=== PATIENT | male | born 1985 | race Caucasian/White ===

== ENCOUNTER 2016-09-21 17:03 | Emergency (ER) | payer OTHER ==
[2016-09-21 17:23] VITALS: TEMP 97.7
[2016-09-21 17:34] VITALS: O2SAT 98
--- NOTE | 2016-09-21 18:02 | ED PDOC ---
Arrival/HPI - General Historian: Patient - General Chief Complaint: Male Genitourinary Time Seen by Provider: 09/21/16 17:44 - History of Present Illness Narrative History of Present Illness (Text): 09/21/16 17:59 31yo male with no PMHx who present with complaint of gross hematuria x months. States he started having burning with urination also months ago. Came to the ED today for evaluation. States he have not seen any Doctor for the hematuria. He denies abdominal pain, urinary frequency, back pain, nausea, vomiting, fever, chills, any other complaint. (Lroenzo Benavides A) Past Medical History - Provider Review Nursing Documentation Reviewed: Yes - Infectious Disease Hx of Infectious Diseases: None - Psychiatric Hx Substance Use: No - Surgical History Hx Appendectomy: Yes Family/Social History - Physician Review Nursing Documentation Reviewed: Yes Family/Social History: Unknown Family HX Smoking Status: Light Smoker < 10 Cigarettes Daily Hx Alcohol Use: No Hx Substance Use: No Allergies/Home Meds Allergies/Adverse Reactions: Allergies No Known Allergies Allergy (Verified 09/21/16 17:23) Review of Systems - Physician Review All systems were reviewed & negative as marked: Yes - Review of Systems Constitutional: Normal Eyes: Normal ENT: Normal Respiratory: Normal Cardiovascular: Normal Gastrointestinal: Normal Genitourinary Male: Dysuria, Hematuria. absent: Frequency Musculoskeletal: Normal Skin: Normal Neurological: Normal Endocrine: Normal Hemo/Lymphatic: Normal Psychiatric: Normal Physical Exam Vital Signs Reviewed: Yes Temperature: Afebrile Blood Pressure: Normal Pulse: Regular Respiratory Rate: Normal Appearance: Positive for: Well-Appearing, Non-Toxic, Comfortable Pain Distress: None Mental Status: Positive for: Alert and Oriented X 3 - Systems Exam Head: Present: Atraumatic, Normocephalic Pupils: Present: PERRL Extroacular Muscles: Present: EOMI Conjunctiva: Present: Normal Mouth: Present: Moist Mucous Membranes Neck: Present: Normal Range of Motion Respiratory/Chest: Present: Clear to Auscultation, Good Air Exchange. No: Respiratory Distress, Accessory Muscle Use Cardiovascular: Present: Regular Rate and Rhythm, Normal S1, S2. No: Murmurs Abdomen: Present: Normal Bowel Sounds. No: Tenderness, Distention, Peritoneal Signs, Rebound, Guarding, McBurney's Point Tender, Rovsing's Sign Present Back: Present: Normal Inspection Upper Extremity: Present: Normal Inspection. No: Cyanosis, Edema Lower Extremity: Present: Normal Inspection. No: Edema Neurological: Present: GCS=15, CN II-XII Intact, Speech Normal Skin: Present: Warm, Dry, Normal Color. No: Rashes Psychiatric: Present: Alert, Oriented x 3, Normal Insight, Normal Concentration Vital Signs Temp Pulse Resp BP Pulse Ox 09/21/16 18:43 80 16 129/84 98 09/21/16 18:35 79 18 130/86 98 09/21/16 17:34 97.7 F 83 18 133/90 98 09/21/16 17:16 97.7 F 83 18 133/90 99 Medical Decision Making ED Course and Treatment: I was available for consultation during PA evaluation. The chart was reviewed by me, and I agree with disposition. The documented history was done by the physician cert occupational therapy asst. The documented physical exam was done by the physician cert occupational therapy asst. The documented procedures were done by the physician cert occupational therapy asst. ( Michel Stone) 09/21/16 19:48 Hematuria was noted in UA. Pt appear comfortable. However he was given abx and DC home with same abx secondary to his complaint of dysuria. Result was DW the pt. He was strongly advised to f/u with a Urologist. TRT ED for any new or worsening symptoms. (Lorenzo Benavides) - Lab Interpretations Lab Results: Lab Results 09/21/16 17:55: Urine Color Yellow, Urine Appearance Clear, Urine pH 7.0, Ur Specific [place] 1.025, Urine Protein Trace H, Urine Glucose (UA) Negative, Urine Ketones Trace H, Urine Blood Large H, Urine Nitrate Negative, Urine Bilirubin Negative, Urine Urobilinogen 0.2, Ur Leukocyte Esterase Negative, Urine RBC Tntc, Urine WBC 1 - 3, Ur Epithelial Cells 1 - 3, Urine Bacteria Few - Medication Orders Current Medication Orders: Discontinued Medications Ciprofloxacin (Cipro) 500 mg PO ONCE STA PRN Reason: Protocol Stop: 09/21/16 18:22 Last Admin: 09/21/16 18:33 Dose: 500 MG Phenazopyridine HCl (Pyridium) 200 mg PO STAT STA Stop: 09/21/16 18:22 Last Admin: 09/21/16 18:33 Dose: 200 MG Disposition/Present on Arrival - Present on Arrival Any Indicators Present on Arrival: No History of DVT/PE: No History of Uncontrolled Diabetes: No Urinary Catheter: No History of Decub. Ulcer: No History Surgical Site Infection Following: None - Disposition Have Diagnosis and Disposition been Completed?: Yes Disposition Time: 16:25 Patient Plan: Discharge - Disposition Diagnosis: Dysuria, Hematuria Disposition: HOME/ ROUTINE Condition: STABLE Discharge Instructions (ExitCare): Acute Hematuria (ED), Dysuria (ED) Additional Instructions: Take medication as directed Follow up with a Urologist Return to ED for any new or worsening symptoms Prescriptions: Ciprofloxacin [Cipro] 500 mg PO BID #6 tab Phenazopyridine [Phenazopyridine HCl] 200 mg PO TID #6 tab Referrals: PCP,NO [Primary Care Provider] - Follow up with primary Darren Oates MD [Staff Provider] - Follow up with primary
[2016-09-21 18:18] LABS: URINE BILIRUBIN NEGATIVE (NEGATIVE); URINE BLOOD LARGE (NEGATIVE); URINE GLUCOSE (UA) NEGATIVE (NEGATIVE); URINE KETONE TRACE mg/dL (NEGATIVE); URINE LEUKOCYTE ESTERASE NEGATIVE Leu/uL (NEGATIVE); URINE PROTEIN TRACE mg/dL (<30 mg/dL); URINE UROBILINOGEN 0.2 E.U./dL (<1 E.U./dL)
[2016-09-21 18:20] LABS: URINE APPEARANCE CLEAR (CLEAR); URINE COLOR YELLOW (YELLOW)
[2016-09-21 18:39] LABS: URINE BACTERIA FEW (NEG); URINE RBC TNTC /hpf (0-2)
[2016-09-21 18:44] VITALS: BP 129/84; PULSE 80; RESP 16
== END 2016-09-21 18:44 | disposition home or self-care (01) ==
LOC: ED 17:03
DX: R31.9 Hematuria, unspecified (principal); R30.0 Dysuria

== ENCOUNTER 2016-10-09 17:14 | Emergency (ER) | payer OTHER ==
[2016-10-09 17:19] VITALS: BMI 24.6
[2016-10-09 17:22] VITALS: TEMP 97.8
--- NOTE | 2016-10-09 17:30 | ED PDOC ---
Arrival/HPI - General Chief Complaint: Male Genitourinary Time Seen by Provider: 10/09/16 17:25 Historian: Patient - History of Present Illness Narrative History of Present Illness (Text): 10/09/16 17:27 31 y/o male, pmh including hematuria, nkda, c/o blood in the urine on and off for over 6 months. Pt. stated that he has no pain on the urination now but occasionally has burning urinary sensation with mild gross hematuia, no dizziness, no flank pain, seen in the ER about 2-3 weeks ago for the same complaint with labs done but no CT performed. Pt. never follow up with the urologist or pmd for the evaluation. Pt. has no increase in pain or change in the pain characteristic. Pt. is here because he would like to have re- evaluation. Pt. has no abnormal bruising. Past Medical History - Provider Review Nursing Documentation Reviewed: Yes - Infectious Disease Hx of Infectious Diseases: None - Cardiac Hx Cardiac Disorders: No - Pulmonary Hx Respiratory Disorders: No - Neurological Hx Neurological Disorder: No - HEENT Hx HEENT Disorder: No - Renal Hx Renal Disorder: No - Endocrine/Metabolic Hx Endocrine Disorders: No - Hematological/Oncological Hx Blood Disorders: No - Integumentary Hx Dermatological Disorder: No - Musculoskeletal/Rheumatological Hx Musculoskeletal Disorders: No - Gastrointestinal Hx Gastrointestinal Disorders: No - Genitourinary/Gynecological Hx Genitourinary Disorders: No - Psychiatric Hx Psychophysiologic Disorder: No Hx Substance Use: No - Surgical History Hx Appendectomy: Yes - Anesthesia Hx Anesthesia: Yes Hx Anesthesia Reactions: No Family/Social History - Physician Review Nursing Documentation Reviewed: Yes Family/Social History: Unknown Family HX Smoking Status: Light Smoker < 10 Cigarettes Daily Hx Alcohol Use: No Hx Substance Use: No Allergies/Home Meds Allergies/Adverse Reactions: Allergies No Known Allergies Allergy (Verified 10/09/16 17:23) Review of Systems - Review of Systems Constitutional: absent: Fatigue, Fevers Eyes: absent: Vision Changes ENT: absent: Hearing Changes Respiratory: absent: Cough, Sputum Cardiovascular: absent: Chest Pain Gastrointestinal: absent: Abdominal Pain, Nausea, Vomiting Genitourinary Male: Hematuria. absent: Dysuria, Frequency Musculoskeletal: absent: Arthralgias, Back Pain Skin: absent: Rash, Pruritis Physical Exam Vital Signs Reviewed: Yes Vital Signs Temp Pulse Resp BP Pulse Ox 10/09/16 20:11 68 20 139/60 100 10/09/16 17:19 97.8 F 99 H 19 140/90 99 Temperature: Afebrile Blood Pressure: Normal Pulse: Regular Respiratory Rate: Normal Appearance: Positive for: Well-Appearing, Non-Toxic, Comfortable Pain Distress: None Mental Status: Positive for: Alert and Oriented X 3 - Systems Exam Head: Present: Atraumatic, Normocephalic Pupils: Present: PERRL Extroacular Muscles: Present: EOMI Conjunctiva: Present: Normal Mouth: Present: Moist Mucous Membranes Neck: Present: Normal Range of Motion Respiratory/Chest: Present: Clear to Auscultation, Good Air Exchange. No: Respiratory Distress, Accessory Muscle Use Cardiovascular: Present: Regular Rate and Rhythm, Normal S1, S2. No: Murmurs Abdomen: Present: Normal Bowel Sounds. No: Tenderness, Distention, Peritoneal Signs, Rebound, Guarding Back: Present: Normal Inspection Upper Extremity: Present: Normal Inspection. No: Cyanosis, Edema Lower Extremity: Present: Normal Inspection. No: Edema Neurological: Present: GCS=15, CN II-XII Intact, Speech Normal Skin: Present: Warm, Dry, Normal Color. No: Rashes Psychiatric: Present: Alert, Oriented x 3, Normal Insight, Normal Concentration Medical Decision Making ED Course and Treatment: 10/09/16 17:30 -labs/ua -CT abdomen and pelvis -Observe and reassess 10/09/16 20:21 -Labs are nonsignificant with hgb 13.6 -UA show hematuria with no UTI -PT/PTT within normal limit. -CT abdomen and pelvis show no visible stones or obvious source of hematuria -I explained to the patient that he has to follow up with the urologist to perform cystoscopy or further evaluation to search for the source of the hematuria. -Rocephine and azithromycin ordered for the prophylatic treatment of the STD which he is sexually active, pt. refused HIV test. -Discharge home with macrobid, stay hydrated, follow up with your own pmd and urologist for cystoscopy or further evaluation regarding about the hematuria, return to the ER for any new or worsening signs or symptoms. - Lab Interpretations Lab Results: 10/09/16 17:36 10/09/16 17:36 Lab Results 10/09/16 17:36: PT 10.0, INR 0.93, APTT 26.3 05/01/17 17:36: Sodium 140, Potassium 4.6, Chloride 103, Carbon Dioxide 28, Anion Gap 14, BUN 16, Creatinine 0.8, Est GFR ( Amer) > 60, Est GFR (Non- Af Amer) > 60, Random Glucose 97, Calcium 9.5, Total Bilirubin 0.5, AST 31, ALT 31, Alkaline Phosphatase 59, Total Protein 8.1, Albumin 4.6, Globulin 3.5, Albumin/Globulin Ratio 1.3 10/09/16 17:36: Urine Color Yellow, Urine Appearance Sl cloudy, Urine pH 6.0, Ur Specific [place] >= 1.030, Urine Protein 30 H, Urine Glucose (UA) Negative, Urine Ketones Negative, Urine Blood Large H, Urine Nitrate Negative, Urine Bilirubin Negative, Urine Urobilinogen 0.2, Ur Leukocyte Esterase Negative, Urine RBC Tntc, Urine WBC 1 - 3, Ur Epithelial Cells 0 - 2, Urine Bacteria Rare 10/09/16 17:36: WBC 7.7, RBC 5.14, Hgb 13.6 L, Hct 40.5 L, MCV 78.8 L, MCH 26.5 , MCHC 33.6, RDW 14.2, Plt Count 323, MPV 9.0, Gran % 35.8 L, Lymph % (Auto) 48.8 H, [place] % (Auto) 9.3 H, Eos % (Auto) 5.7 H, Baso % (Auto) 0.4, Gran # 2.77 , Lymph # 3.8 H, [place] # 0.7 H, Eos # 0.4, Baso # 0.03 I have reviewed the lab results: Yes Interpretation: Abnormal lab values (+hematuria) - RAD Interpretation Radiology Orders: 10/09/16 17:26 ABDOMEN & PELVIS [ABD & PELVIS W/O PO OR IV CONT] [CT] Stat PROCEDURE: CT Abdomen and Pelvis without Oral or IV contrast. HISTORY: hematuria for months COMPARISON: None available TECHNIQUE: Contiguous axial images of the abdomen and pelvis. No oral or IV contrast administered. Coronal and Sagittal reformats generated and reviewed. Radiation dose: Total exam DLP = 448.90 mGy-cm. This CT exam was performed using one or more of the following dose reduction techniques: Automated exposure control, adjustment of the mA and/or kV according to patient size, and/or use of iterative reconstruction technique. FINDINGS: There is limited evaluation of the solid organs without the administration of IV contrast. LOWER THORAX: No visible consolidation, pleural effusion, or pneumothorax. LIVER: Unremarkable unenhanced appearance. GALLBLADDER AND BILE DUCTS: Unremarkable unenhanced appearance. PANCREAS: Unremarkable unenhanced appearance. SPLEEN: Unremarkable unenhanced appearance. ADRENALS: Unremarkable unenhanced appearance. KIDNEYS AND URETERS: No hydronephrosis or obstructing renal calculus. BLADDER: Underdistended urinary bladder precludes adequate evaluation. REPRODUCTIVE: Seminal vesicles appear prominent. APPENDIX: The appendix is not identified. No secondary signs of acute appendicitis. BOWEL: The stomach is nondistended. Lack of oral contrast limits evaluation for bowel pathology. The bowel loops appear within normal limits of caliber without evidence of intestinal obstruction. PERITONEUM: No significant free fluid. No definite free air. LYMPH NODES: No bulky lymphadenopathy identified. VASCULATURE: No aortic aneurysm. BONES: No acute osseous abnormality is detected. OTHER FINDINGS: None. IMPRESSION: No obstructing calculus or hydronephrosis identified. Findings as above. Software Design Analyst: Radiologist - PA / [employer] / Resident Statement / has reviewed & agrees with the documentation as recorded. Disposition/Present on Arrival - Present on Arrival Any Indicators Present on Arrival: No History of DVT/PE: No History of Uncontrolled Diabetes: No Urinary Catheter: No History of Decub. Ulcer: No History Surgical Site Infection Following: None - Disposition Have Diagnosis and Disposition been Completed?: Yes Diagnosis: Hematuria Disposition: HOME/ ROUTINE Disposition Time: 20:24 Patient Plan: Discharge Condition: GOOD Additional Instructions: Discharge home with macrobid, stay hydrated, follow up with your own pmd and urologist for cystoscopy or further evaluation regarding about the hematuria, return to the ER for any new or worsening signs or symptoms. Prescriptions: Nitrofurantoin Macrocrystals [Macrobid] 100 mg PO BID #14 cap Referrals: Saba Rosen, [Primary Care Provider] - Follow up with primary Osman Warren MD [Staff Provider] - Follow up with primary [facility] [place] [Outside] - Follow up with primary Forms: WORK NOTE
[2016-10-09 17:44] LABS: ADD MANUAL DIFF? NO
[2016-10-09 17:52] LABS: URINE BILIRUBIN NEGATIVE (NEGATIVE); URINE BLOOD LARGE (NEGATIVE); URINE GLUCOSE (UA) NEGATIVE (NEGATIVE); URINE KETONE NEGATIVE (NEGATIVE); URINE LEUKOCYTE ESTERASE NEGATIVE Leu/uL (NEGATIVE); URINE PROTEIN 30 mg/dL (<30 mg/dL); URINE UROBILINOGEN 0.2 E.U./dL (<1 E.U./dL)
[2016-10-09 17:58] LABS: URINE COLOR YELLOW (YELLOW)
[2016-10-09 17:59] LABS: URINE APPEARANCE SL CLOUDY (CLEAR)
[2016-10-09 18:00] LABS: BASO # 0.03 K/mm3 (0.0-2.0); BASO % 0.4 % (0.0-3.0); EOS # 0.4 (0.0-0.7); EOS % 5.7 % (1.5-5.0); GRAN # 2.77 (1.4-6.5); GRAN % 35.8 % (50.0-68.0); HEMATOCRIT 40.5 % (42.0-52.0); LYMPH # 3.8 (1.2-3.4); LYMPH % 48.8 % (22.0-35.0); MEAN CELL VOLUME 78.8 fL (80.0-105.0); MEAN CORPUSCULAR HEMOGLOBIN 26.5 pg (25.0-35.0); MEAN CORPUSCULAR HGB CONC 33.6 g/dl (31.0-37.0); MONO # 0.7 (0.1-0.6); MONO % 9.3 % (1.0-6.0); PLATELET COUNT 323 10^3/uL (120.0-450.0); RED CELL DISTRIBUTION WIDTH 14.2 % (11.5-14.5); WHITE BLOOD COUNT 7.7 10^3/ul (4.5-11.0)
[2016-10-09 18:04] LABS: ALB/GLOB RATIO 1.3 (1.1-1.8); ALKALINE PHOSPHATASE 59 U/L (38-133); ALT/SGPT 31 U/L (7-56); AST/SGOT 31 U/L (15-59); BILIRUBIN,TOTAL 0.5 mg/dL (0.2-1.3); BLOOD UREA NITROGEN 16 mg/dL (7-21); CALCIUM 9.5 mg/dL (8.4-10.5); CARBON DIOXIDE 28 mmol/L (21-33); CHLORIDE 103 mmol/L (98-107); GFR AFRICAN-AMERICAN > 60; GLUCOSE,RANDOM 97 mg/dL (70-110); POTASSIUM 4.6 mmol/L (3.6-5.0); SODIUM 140 mmol/L (132-148); TOTAL PROTEIN 8.1 g/dL (5.8-8.3)
[2016-10-09 18:43] LABS: URINE BACTERIA RARE (NEG); URINE EPITHELIAL CELLS 0 - 2 /hpf (0-5); URINE RBC TNTC /hpf (0-2)
--- NOTE | 2016-10-09 18:54 | CT ---
PROCEDURE: CT Abdomen and Pelvis without Oral or IV contrast. HISTORY: hematuria for months COMPARISON: None available TECHNIQUE: Contiguous axial images of the abdomen and pelvis. No oral or IV contrast administered. Coronal and Sagittal reformats generated and reviewed. Radiation dose: Total exam DLP = 448.90 mGy-cm. This CT exam was performed using one or more of the following dose reduction techniques: Automated exposure control, adjustment of the mA and/or kV according to patient size, and/or use of iterative reconstruction technique. FINDINGS: There is limited evaluation of the solid organs without the administration of IV contrast. LOWER THORAX: No visible consolidation, pleural effusion, or pneumothorax. LIVER: Unremarkable unenhanced appearance. GALLBLADDER AND BILE DUCTS: Unremarkable unenhanced appearance. PANCREAS: Unremarkable unenhanced appearance. SPLEEN: Unremarkable unenhanced appearance. ADRENALS: Unremarkable unenhanced appearance. KIDNEYS AND URETERS: No hydronephrosis or obstructing renal calculus. BLADDER: Underdistended urinary bladder precludes adequate evaluation. REPRODUCTIVE: Seminal vesicles appear prominent. APPENDIX: The appendix is not identified. No secondary signs of acute appendicitis. BOWEL: The stomach is nondistended. Lack of oral contrast limits evaluation for bowel pathology. The bowel loops appear within normal limits of caliber without evidence of intestinal obstruction. PERITONEUM: No significant free fluid. No definite free air. LYMPH NODES: No bulky lymphadenopathy identified. VASCULATURE: No aortic aneurysm. BONES: No acute osseous abnormality is detected. OTHER FINDINGS: None. IMPRESSION: No obstructing calculus or hydronephrosis identified. Findings as above.
[2016-10-09 20:05] LABS: INR 0.93 (0.93-1.08); PARTIAL THROMBOPLASTIN TIME 26.3 Seconds (23.7-30.8)
[2016-10-09 20:12] VITALS: BP 139/60; PULSE 68; RESP 20; O2SAT 100
[2016-10-09] MEDS ORDERED: cefTRIAXone (Rocephin) 250 mg Inj IM STA (20:23)
== END 2016-10-09 20:57 | disposition home or self-care (01) ==
LOC: ED 17:14
DX: R31.9 Hematuria, unspecified (principal)
CPT/HCPCS: 74176; 80053; 81001; 85025; 85610; 85730; 87491; 87591; 96372; 99283; J0696

== ENCOUNTER 2016-12-23 15:42 | Emergency (ER) | payer OTHER ==
[2016-12-23 15:58] VITALS: BMI 26.0
[2016-12-23 16:05] VITALS: TEMP 98.2
[2016-12-23 16:34] LABS: URINE BILIRUBIN NEGATIVE (NEGATIVE); URINE BLOOD NEGATIVE (NEGATIVE); URINE GLUCOSE (UA) NEGATIVE (NEGATIVE); URINE LEUKOCYTE ESTERASE NEGATIVE Leu/uL (NEGATIVE); URINE NITRATE NEGATIVE (NEGATIVE); URINE PROTEIN NEGATIVE mg/dL (<30 mg/dL); URINE UROBILINOGEN 0.2 E.U./dL (<1 E.U./dL)
[2016-12-23 16:36] LABS: URINE APPEARANCE CLEAR (CLEAR); URINE COLOR YELLOW (YELLOW)
--- NOTE | 2016-12-23 17:17 | ED PDOC ---
Arrival/HPI - General Chief Complaint: Abdominal Pain Time Seen by Provider: 12/23/16 15:57 Historian: Patient - History of Present Illness Narrative History of Present Illness (Text): 12/23/16 17:14 31 y.o. male whose PMHx includes bilharziasis for which he was recently treated. He says that prior to treatment, he used to experience hematuria frequently but since the treatment which was 2 months ago, he has not had any hematuria or burning or pain with urination. He is here in the ED because he gets an occasional suprapubic discomfort over the past two weeks. He also notes heavy lifting at work. No fever or n/v or constipation. Past Medical History - Infectious Disease Hx of Infectious Diseases: None - Cardiac Hx Cardiac Disorders: No - Pulmonary Hx Respiratory Disorders: No - Neurological Hx Neurological Disorder: No - HEENT Hx HEENT Disorder: No - Renal Hx Renal Disorder: No - Endocrine/Metabolic Hx Endocrine Disorders: No - Hematological/Oncological Hx Blood Disorders: No - Integumentary Hx Dermatological Disorder: No - Musculoskeletal/Rheumatological Hx Musculoskeletal Disorders: No - Gastrointestinal Hx Gastrointestinal Disorders: No - Genitourinary/Gynecological Hx Genitourinary Disorders: Yes Hx Hematuria: Yes - Psychiatric Hx Psychophysiologic Disorder: No Hx Substance Use: No - Surgical History Hx Appendectomy: Yes - Anesthesia Hx Anesthesia: Yes Hx Anesthesia Reactions: No Hx Malignant Hyperthermia: No Family/Social History Family/Social History: No Known Family HX Smoking Status: Light Smoker < 10 Cigarettes Daily Hx Alcohol Use: No Hx Substance Use: No Allergies/Home Meds Allergies/Adverse Reactions: Allergies No Known Allergies Allergy (Verified 12/23/16 15:52) Review of Systems - Physician Review All systems were reviewed & negative as marked: Yes - Review of Systems Constitutional: absent: Fevers Respiratory: absent: SOB Cardiovascular: absent: Chest Pain Gastrointestinal: Other (suprapubic pain). absent: Constipation, Diarrhea, Nausea, Vomiting Genitourinary Male: absent: Dysuria, Frequency, Hematuria, Urinary Output Changes Musculoskeletal: absent: Back Pain Neurological: absent: Dizziness Endocrine: Normal Hemo/Lymphatic: Normal Psychiatric: Normal Physical Exam Vital Signs Temp Pulse Resp BP Pulse Ox 12/23/16 15:42 98.2 F 89 18 116/84 99 Temperature: Afebrile Blood Pressure: Normal Pulse: Regular Respiratory Rate: Normal Appearance: Positive for: Well-Appearing, Non-Toxic, Comfortable Pain Distress: None Mental Status: Positive for: Alert and Oriented X 3 - Systems Exam Head: Present: Atraumatic, Normocephalic Pupils: Present: PERRL Conjunctiva: Present: Normal Mouth: Present: Moist Mucous Membranes Pharnyx: Present: Normal. No: ERYTHEMA, EXUDATE Neck: Present: Normal Range of Motion Respiratory/Chest: Present: Clear to Auscultation, Good Air Exchange. No: Respiratory Distress, Accessory Muscle Use Cardiovascular: Present: Regular Rate and Rhythm, Normal S1, S2. No: Murmurs Abdomen: Present: Normal Bowel Sounds. No: Tenderness, Distention, Peritoneal Signs Rectal: Present: Other (normal sphincter tone with no prostatic tenderness) Back: Present: Normal Inspection Upper Extremity: Present: Normal Inspection. No: Cyanosis, Edema Lower Extremity: Present: Normal Inspection. No: Edema Neurological: Present: GCS=15, CN II-XII Intact, Speech Normal Skin: Present: Warm, Dry, Normal Color. No: Rashes Psychiatric: Present: Alert, Oriented x 3, Normal Insight, Normal Concentration Medical Decision Making ED Course and Treatment: 12/23/16 17:18 Patient s/p cysto and bilharzia treatment 2 months ago with suprapubic pain on/ off. Diff: UTI vs prostatitis vs STD vs muscular strain vs bilharzia recurrence Progress/Plan: Patient with normal exam. Urinalysis is normal. Patient says he only has sex with . Prostate exam is normal. Possible muscular strain vs bilharzia recurrence. Will d/c on cipro trial as well as nsaid trial and follow up with urology. - Lab Interpretations Lab Results: Lab Results 12/23/16 16:10: Urine Color Yellow, Urine Appearance Clear, Urine pH 6.0, Ur Specific [place] 1.025, Urine Protein Negative, Urine Glucose (UA) Negative, Urine Ketones Negative, Urine Blood Negative, Urine Nitrate Negative, Urine Bilirubin Negative, Urine Urobilinogen 0.2, Ur Leukocyte Esterase Negative Disposition/Present on Arrival - Present on Arrival Any Indicators Present on Arrival: No History of DVT/PE: No History of Uncontrolled Diabetes: No Urinary Catheter: No History of Decub. Ulcer: No History Surgical Site Infection Following: None - Disposition Have Diagnosis and Disposition been Completed?: Yes Diagnosis: Suprapubic pain Disposition: HOME/ ROUTINE Disposition Time: 17:15 Patient Plan: Discharge Patient Problems: Current Active Problems Problem Status Onset Suprapubic pain Acute Condition: GOOD Additional Instructions: Take the medication as prescribed and avoid any heavy lifting. Follow up with urology clinic. Return to the emergency department if any new concerning symptoms. Prescriptions: Ciprofloxacin [Cipro] 1 tab PO BID #10 tab Naproxen [Naprosyn] 500 mg PO BID PRN #20 tab PRN Reason: Pain Referrals: [facility] [place] [Outside] - Follow up with primary [facility] [Outside] - Follow up with primary
[2016-12-23 17:50] VITALS: BP 120/84; PULSE 82; RESP 16; O2SAT 100
== END 2016-12-23 17:40 | disposition home or self-care (01) ==
LOC: ED 15:42
DX: R10.30 Lower abdominal pain, unspecified (principal)

== ENCOUNTER 2017-01-03 17:06 | Emergency (ER) | payer OTHER ==
[2017-01-03 17:56] VITALS: TEMP 98
[2017-01-03 17:57] VITALS: BMI 27.3
[2017-01-03 18:06] LABS: URINE BILIRUBIN NEGATIVE (NEGATIVE); URINE BLOOD NEGATIVE (NEGATIVE); URINE GLUCOSE (UA) NEGATIVE (NEGATIVE); URINE LEUKOCYTE ESTERASE NEGATIVE Leu/uL (NEGATIVE); URINE NITRATE NEGATIVE (NEGATIVE); URINE PROTEIN NEGATIVE mg/dL (<30 mg/dL); URINE UROBILINOGEN 0.2 E.U./dL (<1 E.U./dL)
[2017-01-03 18:07] LABS: URINE APPEARANCE CLEAR (CLEAR); URINE COLOR YELLOW (YELLOW)
--- NOTE | 2017-01-03 18:55 | US ---
HISTORY: right testicular pain TECHNIQUE: Realtime sonography through the scrotum with color and doppler flow. COMPARISON: None Available. FINDINGS: RIGHT TESTICLE: Measures 4.8 x 2.1 x 3.0 cm. Homogeneous echotexture. Blood flow is demonstrated. RIGHT EPIDIDYMIS: Epididymal head measures approximately 1.3 x 0.6 x 0.9 cm. Epididymal tail measures approximately 1.1 x 0.7 x 0.7 cm. LEFT TESTICLE: Measures 4.2 x 2.3 x 2.8 cm. Homogeneous echotexture. Blood flow is demonstrated. LEFT EPIDIDYMIS: Epididymal head measures approximately 1.2 x 0.8 x 0.6 cm. Epididymal tail measures approximately 0.8 x 0.6 x 0.6 cm. HYDROCELE: Bilateral small hydroceles. VARICOCELE: Bilateral varicoceles. OTHER FINDINGS: None. IMPRESSION: Bilateral small hydroceles. Bilateral varicoceles.
--- NOTE | 2017-01-03 19:19 | ED PDOC ---
Arrival/HPI - General Chief Complaint: Abdominal Pain Time Seen by Provider: 01/03/17 17:08 Historian: Patient, Adobe Layer (#[id number]) - History of Present Illness Narrative History of Present Illness (Text): 01/03/17 19:45 31 year old male, whose past medical history includes schistosomiasis, who presents to the Emergency department with 2 months duration of intermittent lower abdominal pain and 3 days history of right testicular pain. Patient denies any dysuria, hematuria, urinary frequency, penile discharge, nausea, vomiting, and diarrhea. Patient states he was recently seen in the Emergency department for similar symptoms and prescribed antibiotics which he has not completed. Patient states he has been experiencing lower abdominal cramping since he had a cystoscope and biopsy from his bladder. Patient denies any pain currently, fever, or chills. History given via rigging engineer #[id number]. Symptom Onset: Gradual Symptom Course: Unchanged Activities at Onset: Rest, Light Context: Home Past Medical History - Provider Review Nursing Documentation Reviewed: Yes - Infectious Disease Hx of Infectious Diseases: None - Cardiac Hx Cardiac Disorders: No - Pulmonary Hx Respiratory Disorders: No - Neurological Hx Neurological Disorder: No - HEENT Hx HEENT Disorder: No - Renal Hx Renal Disorder: No - Endocrine/Metabolic Hx Endocrine Disorders: No - Hematological/Oncological Hx Blood Disorders: No - Integumentary Hx Dermatological Disorder: No - Musculoskeletal/Rheumatological Hx Musculoskeletal Disorders: No - Gastrointestinal Hx Gastrointestinal Disorders: No - Genitourinary/Gynecological Hx Genitourinary Disorders: Yes Hx Hematuria: Yes - Psychiatric Hx Psychophysiologic Disorder: No Hx Substance Use: No - Surgical History Hx Appendectomy: Yes - Anesthesia Hx Anesthesia: Yes Hx Anesthesia Reactions: No Hx Malignant Hyperthermia: No Family/Social History - Physician Review Nursing Documentation Reviewed: Yes Family/Social History: Unknown Family HX Smoking Status: Light Smoker < 10 Cigarettes Daily Hx Alcohol Use: No Hx Substance Use: No Allergies/Home Meds Allergies/Adverse Reactions: Allergies No Known Allergies Allergy (Verified 01/03/17 21:29) Review of Systems - Physician Review All systems were reviewed & negative as marked: Yes - Review of Systems Constitutional: Normal. absent: Fevers Eyes: Normal ENT: Normal Respiratory: Normal. absent: SOB, Cough Cardiovascular: Normal. absent: Chest Pain Gastrointestinal: Abdominal Pain. absent: Diarrhea, Nausea, Vomiting Genitourinary Male: Other (+right testicular pain). absent: Dysuria, Frequency , Hematuria, Urinary Output Changes Musculoskeletal: Normal. absent: Back Pain, Neck Pain Skin: Normal. absent: Rash Neurological: Normal. absent: Headache, Dizziness Endocrine: Normal Hemo/Lymphatic: Normal Psychiatric: Normal Physical Exam Vital Signs Reviewed: Yes Vital Signs Temp Pulse Resp BP Pulse Ox 01/03/17 22:18 83 16 134/97 H 99 01/03/17 17:25 98.0 F 68 18 139/85 100 Temperature: Afebrile Blood Pressure: Normal Pulse: Regular Respiratory Rate: Normal Appearance: Positive for: Well-Appearing, Non-Toxic, Comfortable Pain Distress: None Mental Status: Positive for: Alert and Oriented X 3 - Systems Exam Head: Present: Atraumatic, Normocephalic Mouth: Present: Moist Mucous Membranes Neck: Present: Normal Range of Motion Respiratory/Chest: Present: Clear to Auscultation, Good Air Exchange. No: Respiratory Distress, Accessory Muscle Use Cardiovascular: Present: Regular Rate and Rhythm, Normal S1, S2. No: Murmurs Abdomen: Present: Normal Bowel Sounds. No: Tenderness, Distention, Peritoneal Signs, Rebound, Guarding Genitourinary Male: Present: Normal External Genitalia, Circumcised Penis, Testicle Tenderness (Right testicular tenderness), Other (Dr. Fragoso present as rocket propellant plant supervisor). No: Lesions, Penile Discharge, Penile Swelling, Masses, Erythema , Hernias, Testicle Swelling Back: Present: Normal Inspection Upper Extremity: Present: Normal Inspection, Normal ROM. No: Cyanosis, Edema Lower Extremity: Present: Normal ROM Neurological: Present: GCS=15 Skin: Present: Warm, Dry, Normal Color. No: Rashes Psychiatric: Present: Alert, Oriented x 3 Medical Decision Making ED Course and Treatment: 01/03/17 19:45 Impression: 31 year old male complaining of intermittent lower abdominal cramping x2 months , 3 days of right testicular pain. -- CBC, CMP within normal limits -- US Testes shows bilateral hydrocele and varicocele -- CT Abdomen and Pelvis: Negative CT abdomen/pelvis without change from 2016. Pt non toxic well appearing; no distress; discussed all results in depth with patient using job analyst telephone station installer # [id number] advised f/u with urologist. motrin for pain. advised return if symptoms worsen, persist or if new symptoms develop impression; abdominal pain, testicular pain, hydrocele, varicocele Follow up with the primary care physician within the next 2 days Follow up with the Urologist within the next 2 days Return if symptoms worsen,persist or if new symptoms develop. - Lab Interpretations Lab Results: 01/03/17 20:08 01/03/17 20:08 Lab Results 01/03/17 20:08: WBC 6.4, RBC 5.30, Hgb 14.0, Hct 41.3 L, MCV 77.9 L, MCH 26.4, MCHC 33.9, RDW 14.3, Plt Count 317, MPV 8.7, Gran % 38.4 L, Lymph % (Auto) 49.2 H, [place] % (Auto) 7.1 H, Eos % (Auto) 5.0, Baso % (Auto) 0.3, Gran # 2.44, Lymph # 3.1, [place] # 0.5, Eos # 0.3, Baso # 0.02 01/03/17 20:08: Sodium 140, Potassium 4.7, Chloride 102, Carbon Dioxide 29, Anion Gap 14, BUN 14, Creatinine 0.7, Est GFR ( Amer) > 60, Est GFR (Non- Af Amer) > 60, Random Glucose 83, Calcium 9.8, Total Bilirubin 0.6, AST 29, ALT 32, Alkaline Phosphatase 63, Total Protein 7.8, Albumin 4.8, Globulin 3.0, Albumin/Globulin Ratio 1.6 01/03/17 17:55: Urine Color Yellow, Urine Appearance Clear, Urine pH 6.0, Ur Specific [place] 1.025, Urine Protein Negative, Urine Glucose (UA) Negative, Urine Ketones Negative, Urine Blood Negative, Urine Nitrate Negative, Urine Bilirubin Negative, Urine Urobilinogen 0.2, Ur Leukocyte Esterase Negative I have reviewed the lab results: Yes - RAD Interpretation Radiology Orders: 01/03/17 17:47 TESTES DUPLEX COMPLETE [US] Stat 01/03/17 19:46 ABD & PELVIS IV CONTRAST ONLY [CT] Stat Edging Catcher: Radiologist - Medication Orders Current Medication Orders: Discontinued Medications Sodium Chloride (Sodium Chloride 0.9%) 1,000 mls @ 999 mls/hr IV .Q1H1M STA Stop: 01/03/17 20:47 Last Admin: 01/03/17 20:08 Dose: 999 mls/hr Iohexol (Omnipaque 350 100 Ml) Confirm Administered Dose 350 mg .ROUTE .STK-MED ONE Stop: 01/03/17 21:10 - Scribe Statement The provider has reviewed the documentation as recorded by the Scribe Mona Smith All medical record entries made by the Scribe were at my direction and personally dictated by me. I have reviewed the chart and agree that the record accurately reflects my personal performance of the history, physical exam, medical decision making, and the department course for this patient. I have also personally directed, reviewed, and agree with the discharge instructions and disposition. Disposition/Present on Arrival - Present on Arrival Any Indicators Present on Arrival: No History of DVT/PE: No History of Uncontrolled Diabetes: No Urinary Catheter: No History of Decub. Ulcer: No History Surgical Site Infection Following: None - Disposition Have Diagnosis and Disposition been Completed?: Yes Diagnosis: Bilateral hydrocele, Bilateral varicoceles, Testicular pain, Abdominal pain Disposition: HOME/ ROUTINE Disposition Time: 19:12 Patient Plan: Discharge Condition: GOOD Discharge Instructions (ExitCare): Hydrocele (ED), Varicocele (ED), Testicle Pain (ED) Additional Instructions: Follow up with the primary care physician within the next 2 days Follow up with the Urologist within the next 2 days Return if symptoms worsen,persist or if new symptoms develop. Prescriptions: Ibuprofen [Motrin] 600 mg PO Q6H PRN #20 tab PRN Reason: pain/fever reduction Referrals: Anny Warren MD [Staff Provider] - Follow up with primary [facility] [place]] - Follow up with primary Forms: [employer] (Thai)
[2017-01-03] MEDS ORDERED: Sodium Chloride 0.9% 1,000 ML IV STA (19:47)
[2017-01-03 20:20] LABS: BASO # 0.02 K/mm3 (0.0-2.0); BASO % 0.3 % (0.0-3.0); EOS # 0.3 (0.0-0.7); GRAN # 2.44 (1.4-6.5); GRAN % 38.4 % (50.0-68.0); LYMPH # 3.1 (1.2-3.4); LYMPH % 49.2 % (22.0-35.0); MEAN CELL VOLUME 77.9 fL (80.0-105.0); MEAN CORPUSCULAR HEMOGLOBIN 26.4 pg (25.0-35.0); MEAN CORPUSCULAR HGB CONC 33.9 g/dl (31.0-37.0); MEAN PLATELET VOLUME 8.7 fl (7.0-11.0); MONO # 0.5 (0.1-0.6); MONO % 7.1 % (1.0-6.0); PLATELET COUNT 317 10^3/uL (120.0-450.0); RED CELL DISTRIBUTION WIDTH 14.3 % (11.5-14.5); WHITE BLOOD COUNT 6.4 10^3/ul (4.5-11.0)
[2017-01-03 20:52] LABS: ALB/GLOB RATIO 1.6 (1.1-1.8); ALBUMIN 4.8 g/dL (3.0-4.8); ALT/SGPT 32 U/L (7-56); AST/SGOT 29 U/L (15-59); BLOOD UREA NITROGEN 14 mg/dL (7-21); CALCIUM 9.8 mg/dL (8.4-10.5); GFR AFRICAN-AMERICAN > 60; GFR NON-AFRICAN AMERICAN > 60
[2017-01-03] MEDS ORDERED: Iohexol 350 MG/100 ML VIAL ONE (21:09)
[2017-01-03 22:29] VITALS: BP 134/97; PULSE 83; RESP 16; O2SAT 99
--- NOTE | 2017-01-04 08:43 | CT ---
PROCEDURE: CT Abdomen and Pelvis with contrast HISTORY: lower abdominal pain COMPARISON: 10/09/2016 TECHNIQUE: Contrast dose: 93 cc of Omni 350 Radiation dose: Total exam DLP = 632 mGy-cm. This CT exam was performed using one or more of the following dose reduction techniques: Automated exposure control, adjustment of the mA and/or kV according to patient size, and/or use of iterative reconstruction technique. FINDINGS: LOWER THORAX: Unremarkable. LIVER: Unremarkable. No gross lesion or ductal dilatation. GALLBLADDER AND BILE DUCTS: Unremarkable. PANCREAS: Unremarkable. No gross lesion or ductal dilatation. SPLEEN: Unremarkable. ADRENALS: Unremarkable. No mass. KIDNEYS AND URETERS: Unremarkable. No hydronephrosis. No solid mass. VASCULATURE: Unremarkable. No aortic aneurysm. BOWEL: Unremarkable. No obstruction. No gross mural thickening. APPENDIX: Normal appendix. PERITONEUM: Unremarkable. No free fluid. No free air. LYMPH NODES: Unremarkable. No enlarged lymph nodes. BLADDER: Unremarkable. REPRODUCTIVE: Unremarkable. BONES: No acute fracture. OTHER FINDINGS: The report concurs with the preliminary [facility] report IMPRESSION: Unremarkable contrast enhanced CT of the abdomen and pelvis.
== END 2017-01-03 22:38 | disposition home or self-care (01) ==
LOC: ED 17:06
DX: N43.3 Hydrocele, unspecified (principal); I86.1 Scrotal varices; N50.811 Right testicular pain; R10.9 Unspecified abdominal pain
CPT/HCPCS: 74177; 80053; 81003; 85025; 93975; 99283; J7040; Q9967

== ENCOUNTER 2017-02-14 16:49 | Emergency (ER) | payer OTHER ==
[2017-02-14 16:49] VITALS: BMI 27.3
[2017-02-14 17:00] VITALS: TEMP 98.7; O2SAT 100
--- NOTE | 2017-02-14 17:25 | ED PDOC ---
Arrival/HPI - General Chief Complaint: Headache Time Seen by Provider: 02/14/17 16:58 Historian: Patient - History of Present Illness Narrative History of Present Illness (Text): 02/14/17 17:23 Patient c/o intermittent headache for the last 10-12 days. Patient denies any head injury, denies fever, respiratory symptoms, denies nausea/vomiting/ photophobia. Patient sts that he has no history of headaches. Past Medical History - Provider Review Nursing Documentation Reviewed: Yes - Infectious Disease Hx of Infectious Diseases: None - Cardiac Hx Cardiac Disorders: No - Pulmonary Hx Respiratory Disorders: No - Neurological Hx Neurological Disorder: No - HEENT Hx HEENT Disorder: No - Renal Hx Renal Disorder: No - Endocrine/Metabolic Hx Endocrine Disorders: No - Hematological/Oncological Hx Blood Disorders: No - Integumentary Hx Dermatological Disorder: No - Musculoskeletal/Rheumatological Hx Musculoskeletal Disorders: No - Gastrointestinal Hx Gastrointestinal Disorders: No - Genitourinary/Gynecological Hx Hematuria: Yes - Psychiatric Hx Psychophysiologic Disorder: No Hx Substance Use: No - Surgical History Hx Appendectomy: Yes - Anesthesia Hx Anesthesia: Yes Family/Social History - Physician Review Nursing Documentation Reviewed: Yes Family/Social History: No Known Family HX Smoking Status: Light Smoker < 10 Cigarettes Daily Hx Alcohol Use: No Hx Substance Use: No Allergies/Home Meds Allergies/Adverse Reactions: Allergies No Known Allergies Allergy (Verified 02/14/17 16:53) Review of Systems - Physician Review All systems were reviewed & negative as marked: Yes - Review of Systems Neurological: Headache Physical Exam Vital Signs Reviewed: Yes Vital Signs Temp Pulse Resp BP Pulse Ox 02/14/17 19:34 81 16 127/78 100 02/14/17 17:02 98.7 F 87 18 132/82 100 02/14/17 16:54 98.7 F 87 16 132/82 100 Temperature: Afebrile Blood Pressure: Normal Pulse: Regular Respiratory Rate: Normal Appearance: Positive for: Well-Appearing, Non-Toxic, Comfortable Pain Distress: None Mental Status: Positive for: Alert and Oriented X 3 - Systems Exam Head: Present: Atraumatic, Normocephalic Pupils: Present: PERRL Extroacular Muscles: Present: EOMI Conjunctiva: Present: Normal Ears: Present: Normal Mouth: Present: Moist Mucous Membranes Pharnyx: Present: Normal. No: ERYTHEMA Neck: Present: Normal Range of Motion, Other (supple) Respiratory/Chest: Present: Clear to Auscultation, Good Air Exchange Cardiovascular: Present: Regular Rate and Rhythm. No: Murmurs Abdomen: No: Tenderness, Distention Back: Present: Normal Inspection Upper Extremity: Present: Normal Inspection, Normal ROM. No: Edema Lower Extremity: Present: Normal Inspection, Normal ROM. No: Edema Neurological: Present: GCS=15, CN II-XII Intact, Speech Normal, Motor Func Grossly Intact, Normal Sensory Function, Normal Cerebellar Funct Skin: Present: Warm. No: Rashes Psychiatric: Present: Alert, Oriented x 3. No: Normal Insight Medical Decision Making ED Course and Treatment: 02/14/17 19:[address] head were ordered and w/o acute pathology. Patient was treated with IVF and Reglan IV with improvement. Patient will eb e/c home with Clinic follow up. Reassessment Condition: Re-examined, Improved - Lab Interpretations Lab Results: 02/14/17 17:30 02/14/17 17:30 Lab Results 02/14/17 17:30: Sodium 142, Potassium 4.1, Chloride 102, Carbon Dioxide 28, Anion Gap 16, BUN 16, Creatinine 0.8, Est GFR ( Amer) > 60, Est GFR (Non- Af Amer) > 60, Random Glucose 93, Calcium 9.3, Total Bilirubin 0.3, AST 40, ALT 38, Alkaline Phosphatase 68, Total Protein 7.4, Albumin 4.5, Globulin 2.9, Albumin/Globulin Ratio 1.6 02/14/17 17:30: WBC 7.2, RBC 5.08, Hgb 13.5 L, Hct 39.8 L, MCV 78.3 L, MCH 26.6 , MCHC 33.9, RDW 14.2, Plt Count 297, MPV 8.6, Gran % 37.5 L, Lymph % (Auto) 45.0 H, [place] % (Auto) 7.8 H, Eos % (Auto) 9.3 H, Baso % (Auto) 0.4, Gran # 2.68 , Lymph # 3.2, [place] # 0.6, Eos # 0.7, Baso # 0.03 - RAD Interpretation Narrative RAD Interpretations (Text): 02/14/17 19:47 Creator : Caitlyn Durham MD Dictator : Undergraduate Advisor : Contract Paralegal : Caitlyn Durham MD Approver2 : Report Date : 02/14/2017 17:52:10 My Comment : PROCEDURE: CT HEAD WITHOUT CONTRAST. HISTORY: headache x 10 days COMPARISON: None available. TECHNIQUE: Axial computed tomography images were obtained through the head/brain without intravenous contrast. Radiation dose: Total exam DLP = 1064.57 MGy-cm. This CT exam was performed using one or more of the following dose reduction techniques: Automated exposure control, adjustment of the mA and/or kV according to patient size, and/or use of iterative reconstruction technique. FINDINGS: HEMORRHAGE: No intracranial hemorrhage. BRAIN: No mass effect or edema. No atrophy or chronic microvascular ischemic changes. VENTRICLES: No hydrocephalus. CALVARIUM: Unremarkable. PARANASAL SINUSES: Unremarkable as visualized. No significant inflammatory changes. MASTOID AIR CELLS: Unremarkable as visualized. No inflammatory changes. OTHER FINDINGS: None. Bold IMPRESSION: No acute intracranial pathology identified. Radiology Orders: 02/14/17 17:13 HEAD W/O CONTRAST [CT] Stat Boiler Fitter: Radiologist - Medication Orders Current Medication Orders: Discontinued Medications Metoclopramide HCl 10 mg/ (Sodium Chloride) 52 mls @ 200 mls/hr IVPB STAT STA Stop: 02/14/17 17:28 Last Admin: 02/14/17 17:42 Dose: 200 mls/hr Disposition/Present on Arrival - Present on Arrival Any Indicators Present on Arrival: No History of DVT/PE: No History of Uncontrolled Diabetes: No Urinary Catheter: No History of Decub. Ulcer: No History Surgical Site Infection Following: None - Disposition Have Diagnosis and Disposition been Completed?: Yes Diagnosis: Headache Disposition: HOME/ ROUTINE Disposition Time: 19:19 Patient Plan: Discharge Condition: STABLE Discharge Instructions (ExitCare): General Headache (ED) Additional Instructions: Follow up in Clinic within 1-2 days. Return to ED if feel worse. Prescriptions: Acetaminophen/Butalbital/Caf [Fioricet] 1 tab PO TID PRN #20 tab PRN Reason: Headache Metoclopramide [Reglan] 1 tab PO TID PRN #25 tab PRN Reason: Headache Referrals: PCP,NO [Primary Care Provider] - Follow up with primary [facility] [Outside] - Follow up with primary [facility] [place] - Follow up with primary Forms: [employer] (Indonesian)
[2017-02-14 17:51] LABS: BASO # 0.03 K/mm3 (0.0-2.0); BASO % 0.4 % (0.0-3.0); EOS # 0.7 (0.0-0.7); EOS % 9.3 % (1.5-5.0); GRAN # 2.68 (1.4-6.5); GRAN % 37.5 % (50.0-68.0); HEMATOCRIT 39.8 % (42.0-52.0); LYMPH # 3.2 (1.2-3.4); MEAN CELL VOLUME 78.3 fl (80.0-105.0); MEAN CORPUSCULAR HEMOGLOBIN 26.6 pg (25.0-35.0); MEAN CORPUSCULAR HGB CONC 33.9 g/dl (31.0-37.0); MEAN PLATELET VOLUME 8.6 fl (7.0-11.0); MONO # 0.6 (0.1-0.6); MONO % 7.8 % (1.0-6.0); RED CELL DISTRIBUTION WIDTH 14.2 % (11.5-14.5); WHITE BLOOD COUNT 7.2 10^3/ul (4.5-11.0)
--- NOTE | 2017-02-14 17:54 | CT ---
PROCEDURE: CT HEAD WITHOUT CONTRAST. HISTORY: headache x 10 days COMPARISON: None available. TECHNIQUE: Axial computed tomography images were obtained through the head/brain without intravenous contrast. Radiation dose: Total exam DLP = 1064.57 MGy-cm. This CT exam was performed using one or more of the following dose reduction techniques: Automated exposure control, adjustment of the mA and/or kV according to patient size, and/or use of iterative reconstruction technique. FINDINGS: HEMORRHAGE: No intracranial hemorrhage. BRAIN: No mass effect or edema. No atrophy or chronic microvascular ischemic changes. VENTRICLES: No hydrocephalus. CALVARIUM: Unremarkable. PARANASAL SINUSES: Unremarkable as visualized. No significant inflammatory changes. MASTOID AIR CELLS: Unremarkable as visualized. No inflammatory changes. OTHER FINDINGS: None. Bold IMPRESSION: No acute intracranial pathology identified.
[2017-02-14 18:05] LABS: ALB/GLOB RATIO 1.6 (1.1-1.8); ALKALINE PHOSPHATASE 68 U/L (38-126); ALT/SGPT 38 U/L (7-56); AST/SGOT 40 U/L (17-59); BILIRUBIN,TOTAL 0.3 mg/dL (0.2-1.3); BLOOD UREA NITROGEN 16 mg/dL (7-21); CALCIUM 9.3 mg/dL (8.4-10.5); CARBON DIOXIDE 28 mmol/L (21-33); CHLORIDE 102 mmol/L (98-107); GFR AFRICAN-AMERICAN > 60; GLUCOSE,RANDOM 93 mg/dL (70-110); POTASSIUM 4.1 mmol/L (3.6-5.0); SODIUM 142 mmol/L (132-148); TOTAL PROTEIN 7.4 g/dL (5.8-8.3)
[2017-02-14 19:34] VITALS: BP 127/78; PULSE 81; RESP 16
== END 2017-02-14 19:34 | disposition home or self-care (01) ==
LOC: ED 16:49
DX: R51 Headache (principal)
CPT/HCPCS: 70450; 80053; 85025; 99285; J2765